=== PATIENT | male | born 1975 | race Caucasian/White ===

== ENCOUNTER 2019-07-01 09:42 | Emergency (ER) | payer BC ==
[~2019-07-01] VITALS: Ht 177.8 cm; Wt 106.6 kg
[2019-07-01 09:54] VITALS: Ht 177.8 cm; Wt 106.6 kg
[2019-07-01 10:59] LABS: BASOPHIL % 0.4 % (0-2); PLATELET COUNT 198 x10^3mcL (130-400); RED CELL DISTRIBUTION WIDTH 14.1 % (11.5-14.5)
[2019-07-01 11:21] LABS: CARBON DIOXIDE 28.4 mmol/L (21-32); CHLORIDE SERUM 102 mmol/L (98-107); CREATININE SERUM 0.8 mg/dL (0.7-1.3); GFR1 > 60 mL/min; GLUCOSE SERUM 103 mg/dL (74-106); POTASSIUM SERUM 4.5 mmol/L (3.5-5.1); SODIUM SERUM 138 mmol/L (136-145)
[2019-07-01 11:22] LABS: ALBUMIN 4.1 g/dL (3.4-5.0); AST/SGOT 16 U/L (15-37); BILIRUBIN TOTAL 0.53 mg/dL (0.20-1.00); CALCIUM 8.8 mg/dL (8.5-10.1); TOTAL PROTEIN, SERUM 7.7 g/dL (6.4-8.2)
[2019-07-01 11:23] LABS: ALT/SGPT 51 U/L (16-63)
[2019-07-01 11:24] LABS: ALKALINE PHOSPHATASE 68 U/L (46-116)
[2019-07-01 12:26] VITALS: BP 121/81
== END 2019-07-01 12:26 | disposition home or self-care (01) ==
LOC: ED 09:42
DX: R07.89 Other chest pain (principal); R06.02 Shortness of breath; R42 Dizziness and giddiness
CPT/HCPCS: 36415